=== PATIENT | male | born 1995 | race Caucasian/White ===

== ENCOUNTER 2024-05-04 10:40 | Emergency (ER) | payer MEDICAID ==
[~2024-05-04] VITALS: Ht 167.6 cm; Wt 113.0 kg
[~2024-05-04 10:40] MED LIST: LEVO-65 MT; VALS160T28 MT
[2024-05-04 10:49] VITALS: O2SAT 99
[2024-05-04 13:15] LABS: CHLORIDE 100 mEq/L (98-107); POTASSIUM 3.7 mEq/L (3.5-5.1); SODIUM 140 mEq/L (136-145)
[2024-05-04 13:16] LABS: CALCIUM 9.5 mg/dL (8.7-10.4); CARBON DIOXIDE 29 mEq/L (21-32)
[2024-05-04 13:21] LABS: BASOPHILS % 0.3 % (0.0-2.0); CREATININE 0.8 mg/dL (0.6-1.3); EOSINOPHILS % 0.4 % (0.0-5.0); GLUCOSE 103 mg/dL (70-105); HEMATOCRIT. 41.4 % (42.0-52.0); HEMOGLOBIN. 13.9 g/dL (14.0-18.0); LYMPHOCYTES % 20.3 % (20.0-50.0); MEAN CORPUSCULAR HEMOGLOBIN 27.8 pg (28.0-32.0); MEAN CORPUSCULAR HGB CONC 33.6 g/dL (31.0-37.0); MEAN CORPUSCULAR VOLUME 82.7 fL (80.0-94.0); MEAN PLATELET VOLUME 8.3 fl (7.4-10.4); MONOCYTES % 4.7 % (2.0-8.0); NEUTROPHILS % 74.3 % (40.0-76.0); PLATELET 274 x1000/uL (130-400); RED BLOOD CELL COUNT 5.01 mill/uL (4.7-6.1); RED CELL DISTRIBUTION WIDTH 13.7 % (11.6-14.6); UREA NITROGEN BLOOD 10 mg/dL (9-23)
[2024-05-04] MEDS ORDERED: D-ME473S50 PO (15:35)
[2024-05-04 15:54] VITALS: BP 135/81; PULSE 71; RESP 16; TEMP 36.5; O2SAT 98
== END 2024-05-04 16:09 | disposition home or self-care (01) ==
LOC: ER 10:40
DX: J40 Bronchitis, not specified as acute or chronic (principal); I10 Essential (primary) hypertension
CPT/HCPCS: 36415; 71046; 80048; 85025; 99284